=== PATIENT | female | born 1995 | race Caucasian/White ===

== ENCOUNTER 2020-07-23 15:01 | Emergency (ER) | payer SELFPAY ==
[~2020-07-23] VITALS: Ht 170.2 cm; Wt 63.5 kg
--- NOTE | 2020-07-23 15:01 | NUR ---
PT BIB [facility] [address] AND [employer] OFF[employer]ERS, WALKING IN & OUT OF TRAFFIC AND ACTING BIZARRE, PT IS AAOX1, NOT IN RESPIRATORY DISTRESS, HOOKED TO WOOD CARVER, KEPT RESTED AND COMFORATABLE. WILL CONTINUE TO MONITOR.
--- NOTE | 2020-07-23 15:26 | NUR ---
PT SEEN AND EXAMINED BY .
[2020-07-23 16:44] LABS: BASOPHILS # (AUTO) 0.1 /CMM (0.0-0.2); BASOPHILS % (AUTO) 0.8 % (0.0-2.0); EOSINOPHILS % (AUTO) 4.1 % (0.0-6.0); HEMATOCRIT 36 % (33-45); HEMOGLOBIN 11.8 g/dL (11.5-14.8); LYMPHOCYTES # (AUTO) 2.3 /CMM (0.8-4.8); LYMPHOCYTES % (AUTO) 30.1 % (20.0-44.0); MEAN CORPUSCULAR HGB CONC 33 g/dl (31.0-36.0); MEAN CORPUSCULAR VOLUME 95 fL (82-100); MONOCYTES # (AUTO) 0.9 /CMM (0.1-1.30); MONOCYTES % (AUTO) 11.6 % (2.0-12.0); NEUTROPHILS # (AUTO) 4.1 /CMM (1.8-8.9); NEUTROPHILS % (AUTO) 53.4 % (43.0-81.0); PLATELET COUNT (AUTO) 290 /CMM (150-450); RED BLOOD CELL COUNT(AUTO) 3.76 MIL/uL (4.0-5.2); WHITE BLOOD COUNT (AUTO) 7.7 K/uL (4.3-11.0)
[2020-07-23 17:04] LABS: CALCIUM, SERUM 9.2 mg/dL (8.5-10.1); CARBON DIOXIDE 25 mmol/L (21-32); CHLORIDE 104 mmol/L (98-107); CREATININE 1.1 mg/dL (0.6-1.3); GLUCOSE 80 mg/dL (74-106); POTASSIUM 3.7 mmol/L (3.5-5.1); SODIUM SERUM 141 mmol/L (136-145); UREA NITROGEN, BLOOD 15 mg/dL (7-18)
[2020-07-23 17:22] LABS: ALANINE AMINOTRANSFERASE 21 U/L (12-78); ALBUMIN 4.5 g/dL (3.4-5.0); ALCOHOL, BLOOD < 3 mg/dL (0-0); ALKALINE PHOSPHATASE 61 U/L (46-116); ASPARTATE AMINOTRANSFERASE 23 U/L (15-37); BILIRUBIN,DIRECT 0.4 mg/dL (0.0-0.2); BILIRUBIN,TOTAL 1.5 mg/dL (0.2-1.0); TOTAL PROTEIN, SERUM 7.3 g/dL (6.4-8.2)
[2020-07-23 17:23] LABS: ACETAMINOPHEN < 2 ug/ml (10-30)
[2020-07-23 17:38] LABS: BILIRUBIN,URINE MODERATE (NEGATIVE); COLOR,URINE YELLOW (YELLOW); LEUKOCYTE ESTERASE ,URINE Negative (NEGATIVE); NITRITE, URINE Negative (NEGATIVE); PH,URINE 5.5 (5.0-8.0); PROTEIN,URINE Trace mg/dl (NEGATIVE); UGLUCOSE Negative (NEGATIVE)
[2020-07-23 17:42] LABS: BACTERIA,URINE Rare /HPF (None Seen); SQUAMOUS EPITHELIAL CELL,UR Few /HPF (None Seen); WBC,URINE NONE SEEN /HPF (0-3)
--- NOTE | 2020-07-23 19:29 | NUR ---
PATIENT IS REDIRECTABLE. PATIENT DENIES HARM TO OTHER NOR TO SELF. PATIENT IS REMOVED OFF OF RESTRAINTS PER MD'S ORDERS. PATIENT IS SOMNOLENT. PATIENT IS ABLE TO STATE NAME AND BIRTHDATE. PATIENT IS BREATHING EVENLY AND UNLABORED ON ROOM AIR. CONNECTED TO THE MONITOR WITH SITTER AT BEDSIDE.
--- NOTE | 2020-07-24 00:56 | NUR ---
JOSE C ROMEROW AT BEDSIDE FOR EVAL.
--- NOTE | 2020-07-24 03:08 | NUR ---
PT ASLEEP, NO ACUTE DISTRESS NOTED, RESP EVEN AND UNLABORED. CALL LIGHT WIHTIN REACH. WILL CONTINUE TO MONITOR PT. 1:1 SITTER AT BEDSIDE FOR PT SAFETY.
--- NOTE | 2020-07-24 08:40 | NUR ---
easily arousable,answerring questions appropriately,Suzanne ROMEROW called for re-eval
--- NOTE | 2020-07-24 10:50 | NUR ---
"[employer] Set Up Technician note: customer services coordinator requested for homelessness. Patient is a 24-year-old, female. Per chart, patient was brought in by EMS for bizarre behavior. financial sales assistant, Suzanne Giron, , met with patient and discontinued 5150 hold. SW met with patient at her bedside in the emergency department and offered the patient homeless and substance use resources. Patient accepted the resources. Patient signed the homeless waiver and SW filed waiver in the patient's chart. Patient stated that she will return to her prior living arrangement on the streets and plans to use public transportation. PLAN: Patient stated that she will return to her prior living arrangement on the streets. No further SS intervention, however, SW will remain available as needed. Year-round shelters: [facility] [address] [place], [place] [id number] ; [facility] [address] [place] [address]; [id number] [address] SPA 4 | [facility] [place] Provider: First to Serve Address: [address], [address] # of Beds: 48 Population Served: [facility] Provider: First to Serve Address: [address] [facility], [address] # of Beds: 73 Population Served: [facility] 6 | [facility] Provider: Home at Last Address: [address] [facility], [address] # of Beds: 63 Population Served: [facility] 3 | [facility] Provider: [facility] [place] Address: [address] [facility], [address] # of Beds: 75 Population Served: [facility] SPA 8 | [facility] Provider: [facility] [place] Address: [address] [facility] [address] # of Beds: 80 Population Served: [facility] SPA 1 | [facility] Provider: [facility] [place] Address: [address] [address], [address] # of Beds: 85 Population Served: [place] SPA 2 | [facility] Provider: Linda molina [facility] Address: Confidential (please call for location) # of Beds: 52 Population Served: [facility] SPA 4 | [facility] Provider: [facility] Address: [address] [facility], [address] # of Beds: 49 Population Served: [facility] Provider: First To Serve Address: [address] [place] [address], [address] # of Beds: 27 Population Served: [facility] Hygiene: [facility]: [address] [place] ; [place] [facility] [address] [facility] ; [facility] [address] [facility] . Food Resources: [place] [facility] at [facility]- [address] [facility]; Meet Each Need with Dignity ([facility]) [address] [facility]; [facility] [address] [facility]; [facility] [address] [facility]. Mental Health resources provided: [facility] [address] [place], [place] [id number] ; [facility] [address] [facility] [address], [place] [address] ; Tiffanie Perez [facility] [address] [place] [address] ; [facility] [address] [place], [place] [id number] Healthcare Clinics: [facility] [address] [facility], [address] [place]. [place] ; [facility] [address] [facility] [address] [place] [address]; [facility] [address] [facility] [phone]) [phone] Counseling--Outpatient [facility] [address] [facility], [address] [place], [place] [address] (Specializes in in-depth psychotherapy for emotional distress: anxiety, depression, interpersonal conflicts, life transitions, childhood abuse) PSYCHIATRIC OUTPATIENT SERVICES [facility] Partial Hospitalization and Intensive Outpatient Program (Managed Care and [place] Only) [address] [facility] [address] [facility] Partial Hospitalization and Outpatient Program [address] [facility] [facility]. [address] [place], [place] [id number] [facility] Partial Hospitalization and Outpatient Program [address] [facility]. [place], [place] [id number] [facility] [place] [facility] [address] [facility]. [address] [place], [place] [address] [facility] Partial Hospitalization and Outpatient Program [address] [place], [place] [phone] Substance use resources provided included: [facility] Substance Abuse Self-Helpline (SAS) ; [facility] [address] [place] [address] ; [facility] [address] [facility] [address] ; [facility] [address] [facility] [phone] ; [facility] Treatment [facility] [address] [facility] [address] ; [facility] [address] [facility] [address] ; [facility]; [facility] [place]; [facility]; Alcoholics Anonymous -SFV"
[2020-07-24 12:06] VITALS: BP 114/72
--- NOTE | 2020-07-24 12:06 | NUR ---
Patient discharged to home in stable condition. Written and verbal after care instructions given. Patient verbalizes understanding of instruction.
== END 2020-07-24 10:28 | disposition home or self-care (01) ==
LOC: ER 15:04
DX: F29 Unspecified psychosis not due to a substance or known physiological condition (principal); F19.10 Other psychoactive substance abuse, uncomplicated; Z20.822 Contact with and (suspected) exposure to COVID-19
CPT/HCPCS: 36415; 80048; 80076; 80143; 80307; 80320; 81001; 84703; 85025; 87426; 99285; C9803; G0480